=== PATIENT | female | born 1995 | race Caucasian/White ===

== ENCOUNTER 2021-05-25 23:31 | Emergency (ER) | payer SELFPAY ==
[2021-05-25] MEDS ORDERED: diphenhydrAMINE 50 MG/ML VIAL ONE (23:49)
[2021-05-25] MEDS ORDERED: Prochlorperazine 10 MG/2 ML VIAL ONE (23:49)
[2021-05-25] MEDS ORDERED: Lactated Ringer's 1,000 ML ONE (23:49)
[2021-05-25] MEDS ORDERED: Ketorolac Tromethamine 30 MG/ML VIAL ONE (23:59)
== END 2021-05-26 00:41 | disposition home or self-care (01) ==
LOC: MADERS 23:31
DX: G43.909 Migraine, unspecified, not intractable, without status migrainosus (principal); F17.290 Nicotine dependence, other tobacco product, uncomplicated; Z79.899 Other long term (current) drug therapy
CPT/HCPCS: 96374; 96375; J0780; J1200; J1885; J7120